=== PATIENT | female | born 1955 | race Caucasian/White ===

== ENCOUNTER 2020-09-28 11:33 | Emergency (ER) | payer MEDICARE, SELFPAY ==
[2020-09-28 11:46] VITALS: BP 179/80; PULSE 98; RESP 20; TEMP 37.2; O2SAT 98
[2020-09-28 11:54] VITALS: BP 179/80; PULSE 98; RESP 20; TEMP 37.2; O2SAT 98
--- NOTE | 2020-09-28 11:57 | ED.URI ---
HPI - URI/Sore Throat General Chief Complaint: Upper Respiratory Infection Stated Complaint: Coughing History of Present Illness HPI Narrative: patient presents with nasal congestion and cough non productive cough. patient declines covid testing. no shortness of breath and no chest pain. patient took one dose of Sudafed with minimal relief. MD elicited complaint: nasal congestion Related Data Home Medications Medication Instructions Recorded Confirmed cyclobenzaprine 10 mg PO HS PRN 09/28/20 09/28/20 pantoprazole 40 mg PO BID 09/28/20 09/28/20 solifenacin 10 mg PO BID 09/28/20 09/28/20 Allergies Allergy/AdvReac Type Severity Reaction Status Date / Time aspirin [From Percodan] Allergy Unknown Verified 09/28/20 11:54 oxycodone [From Percodan] Allergy Unknown Verified 09/28/20 11:54 thiurizol Allergy Unknown Uncoded 09/28/20 11:54 Review of Systems Review of Systems: Narrative: CONSTITUTIONAL: Denies chills, or sweats. Reports fever and generalized body aches EYES: Denies visual changes, redness, or discharge. ENT: Denies otalgia. Reports nasal congestion runny nose and sore throat CARDIOVASCULAR: Denies chest pain, palpitations, or edema. RESPIRATORY: Denies dyspnea. Reports occasional cough GASTROINTESTINAL: Denies abdominal pain, nausea, vomiting, or diarrhea. GENITOURINARY: Denies dysuria or hematuria. SKIN: Denies rash or itching. MUSCULOSKELETAL: Denies back pain, joint pain, or myalgia. Reports generalized body aches NEUROLOGIC: Denies headache, numbness, or weakness. PSYCHIATRIC: Denies anxiety or depression. PMFSH Social History Social History Gender identity (if verbalized by the patient): Female Comments At time of signature, agree with nursing past medical, surgical, social and family history. There is no relevant family history pertinent to the presenting complaint Exam Narrative: Exam Narrative: The patient is a well-developed, well-nourished in no acute distress. SKIN: Skin is warm and dry without erythema, swelling or exudate. There is good turgor. No tenting. HEAD: Atraumatic. Normocephalic. No temporal or scalp tenderness. EYES: Moist and bright. Sclera and conjunctivae normal. No discharge. PERRLA. Extraocular motions intact. Gross visual acuity intact. EARS: Pinna is normal shape and contour. Clear external auditory canals. TM pearly najera with good cone of light, no erythema or suppuration. Bilateral cerumen noted no gross hearing deficit. NOSE: pink, moist mucosa with good air movement. Clear rhinorrhea without nasal flaring. Septum midline. Mouth: moist mucous membranes. THROAT; mild erythema noted to posterior oropharynx with moderate postnasal drainage. Without exudate or ulceration.. Uvula midline. Normal movement of soft palate. NECK: Supple and nontender with full range of motion without discomfort. No meningeal signs. LUNGS: Equal and bilateral breath sounds without wheezes, rales or rhonchi. CHEST: The chest wall is without retractions or use of accessory muscles. HEART: Has a regular rate and rhythm without murmur, gallops, click or rub. ABDOMEN: Soft, nontender with positive active bowel sounds. No rebound tenderness. EXTREMITIES: Without cyanosis, clubbing or edema. Equal 2+ distal pulses and 2 second capillary refill noted. NEUROLOGIC: alert, active, . The patient moves all extremities with normal muscle strength. Normal muscle tone is noted. Normal coordination is noted. NO focal neurological findings noted. Course Vital Signs Vital signs: Vital Signs Temperature 37.2 C 09/28/20 11:46 Pulse Rate 98 09/28/20 11:46 Respiratory Rate 09/28/20 11:46 Blood Pressure 179/80 H 09/28/20 11:46 Pulse Oximetry 98 09/28/20 11:46 Temperature 37.2 C 09/28/20 11:54 Pulse Rate 98 09/28/20 11:54 Respiratory Rate 20 09/28/20 11:54 Blood Pressure 179/80 H 09/28/20 11:54 Pulse Oximetry 98 09/28/20 11:54 Please EJ schedule a followup visit with your p
== END 2020-09-28 12:09 | disposition home or self-care (01) ==
PROVIDERS: Emergency Provider Nurse Practitioner Family
DX: R09.82 Postnasal drip (principal); K21.9 Gastro-esophageal reflux disease without esophagitis
CPT/HCPCS: 99213; G0463

== ENCOUNTER 2021-09-11 13:22 | Emergency (ER) | payer MEDICARE, SELFPAY ==
[2021-09-11 13:28] VITALS: BP 138/63; PULSE 80; RESP 16; TEMP 36.9; O2SAT 97
--- NOTE | 2021-09-11 13:37 | ED.URI ---
HPI - URI/Sore Throat General Chief Complaint: Upper Respiratory Infection Stated Complaint: sore throat cough head congestion Time Seen by Provider: 09/11/21 14:02 Source: patient and RN notes reviewed Mode of arrival: ambulatory Limitations: no limitations History of Present Illness HPI Narrative: 66-year-old female presents with concern for cough, ear fullness, headache, scratchy throat, raspy voice. Reports symptoms started on Friday. She denies fever, body aches, chills, sweats. She reports she is taken Benadryl. MD elicited complaint: cough Related Data Home Medications Medication Instructions Recorded Confirmed cyclobenzaprine 10 mg tablet 10 mg PO HS PRN Muscle Pain 09/28/20 09/11/21 pantoprazole 40 mg tablet,delayed 40 mg PO BID 09/28/20 09/11/21 release solifenacin 10 mg tablet 10 mg PO BID 09/28/20 09/11/21 Allergies Allergy/AdvReac Type Severity Reaction Status Date / Time aspirin [From Percodan] Allergy Unknown Verified 09/11/21 13:36 oxycodone [From Percodan] Allergy Unknown Verified 09/11/21 13:36 thiurizol Allergy Unknown Uncoded 09/11/21 13:36 Review of Systems Review of Systems: CONSTITUTIONAL: Reports malaise. Denies chills, sweats, or fever. EYES: Denies visual changes, redness, or discharge. ENT: Reports rhinorrhea, congestion, ear fullness and sore throat. CARDIOVASCULAR: Denies chest pain, palpitations, or edema. RESPIRATORY: Reports cough. Denies dyspnea. GASTROINTESTINAL: Denies abdominal pain, nausea, vomiting, diarrhea SKIN: Denies rash or itching. MUSCULOSKELETAL: Denies myalgia. NEUROLOGIC: Reports headache. All systems reviewed & are unremarkable except as noted in HPI and below PMFSH Social History Social History Gender identity (if verbalized by the patient): Female Comments At time of signature, agree with nursing past medical, surgical, social and family history. There is no relevant family history pertinent to the presenting complaint Exam Narrative: GENERAL: Well-appearing, well-nourished, and in no acute distress. HEAD: Normocephalic EYES: PERRLA, conjunctivae clear ENT: Nares clear, clear discharge. Mucous membranes moist. TM pearly gardiner with dull light reflex bilaterally; no tragal tenderness. Oropharynx not erythematous without lesions. Tonsils not enlarged and without exudate, no drooling, no hoarseness, no trismus, uvula midline. NECK: Supple. No lymphadenopathy CHEST: Clear to auscultation, breath sounds equal. No wheezing, rhonchi, rales, or stridor. No respiratory distress, speaks in full sentences. HEART: Regular rate and rhythm. No murmur heard. SKIN: Warm, dry, no rash. NEURO: Alert and oriented x3. PSYCH: Normal mood and affect Course Course Emergency Course: Discussed negative influenza test, offered COVID test, patient declined. Patient is aware of diagnosis, understands and agrees to treatment plan. Anticipatory guidance given. Patient agrees to follow-up as directed and is aware of reasons to seek care at the emergency department. Portions of this record may have been created with voice recognition software Level of Care: Express Care Visit Vital Signs Vital signs: Vital Signs Temperature 98.4 F 09/11/21 13:28 Pulse Rate 80 09/11/21 13:28 Respiratory Rate 16 09/11/21 13:28 Blood Pressure 138/63 09/11/21 13:28 Pulse Oximetry 97 09/11/21 13:28 Oxygen Delivery Room Air 09/11/21 13:28 Temperature 98.4 F 09/11/21 13:28 Pulse Rate 80 09/11/21 13:28 Respiratory Rate 16 09/11/21 13:28 Blood Pressure 138/63 09/11/21 13:28 Pulse Oximetry 97 09/11/21 13:28 Oxygen Delivery Room Air 09/11/21 13:28 Reviewed. MDM - URI/Sore Throat MDM Narrative Medical decision making narrative: Differential diagnosis considered: Parrish virus, strep pharyngitis, allergic rhinitis, upper respiratory tract infection, sinusitis, rhinosinusitis, nasopharyngitis. viral pharyngitis, otitis media, otitis externa, pneumonia, bro
== END 2021-09-11 14:07 | disposition home or self-care (01) ==
PROVIDERS: Emergency Provider Nurse Practitioner
DX: J06.9 Acute upper respiratory infection, unspecified (principal); K21.9 Gastro-esophageal reflux disease without esophagitis
CPT/HCPCS: 87804; 99213; G0463

== ENCOUNTER 2022-07-20 13:49 | Emergency (ER) | payer MEDICARE, SELFPAY ==
--- NOTE | ~2022-07-20 | XR_ITS ---
EXAMINATION: XR knee LT min 4V DATE: 07/20/2022 14:12 INDICATION: Left knee pain, initial encounter TECHNIQUE: Four views of the left knee were obtained. COMPARISON: None. FINDINGS: There is an acute, traumatic fracture of the lateral tibial plateau. There is mild depressi on of the lateral fracture fragment. There is a small knee joint effusion. Mild tricompartmental oste oarthritis is noted. Soft tissues are unremarkable. IMPRESSION: 1. Minimally depressed fracture of the lateral tibial plateau. Reviewed, dictated and finalized at location A.
[2022-07-20 13:58] VITALS: BP 153/72; PULSE 92; RESP 16; TEMP 36.9; O2SAT 100
--- NOTE | 2022-07-20 14:19 | ED.LOWEXIN ---
HPI - Extremity Injury (Lower) General Chief Complaint: Extremity Injury, Lower Stated Complaint: Left Knee/Leg Injury Time Seen by Provider: 07/20/22 14:19 History of Present Illness HPI Narrative: PATIENT PRESENTS IWTH RIGHT KNEE PAIN NO DEFORMITY NO BRUISING NOTED SLIGHT SWELLING TO RIGHT KNEE. PATIENT REPORTS SHE TWISTED IT EARLIER TODAY AND NOW IT HURTS TO WALK ON HER KNEE. Related Data Home Medications Medication Instructions Recorded Confirmed cyclobenzaprine 10 mg tablet 10 mg PO HS PRN Muscle Pain 09/28/20 07/20/22 pantoprazole 40 mg tablet,delayed 40 mg PO BID 09/28/20 07/20/22 release solifenacin 10 mg tablet 10 mg PO BID 09/28/20 07/20/22 Allergies Allergy/AdvReac Type Severity Reaction Status Date / Time aspirin [From Percodan] Allergy Unknown Verified 07/20/22 14:16 oxycodone [From Percodan] Allergy Unknown Verified 07/20/22 14:16 thiurizol Allergy Unknown Uncoded 07/20/22 14:16 Review of Systems Review of Systems: CONSTITUTIONAL: DENIES FEVER, CHILLS, OR SWEATS. EYES: DENIES VISUAL CHANGES, REDNESS, OR DISCHARGE. ENT: DENIES RHINORRHEA, CONGESTION, SORE THROAT, OR OTALGIA. CARDIOVASCULAR: DENIES CHEST PAIN, PALPITATIONS, OR EDEMA. RESPIRATORY: DENIES COUGH OR DYSPNEA. GASTROINTESTINAL: DENIES ABDOMINAL PAIN, NAUSEA, VOMITING, OR DIARRHEA. GENITOURINARY: DENIES DYSURIA OR HEMATURIA. SKIN: DENIES RASH OR ITCHING. MUSCULOSKELETAL: DENIES BACK PAIN, JOINT PAIN, OR MYALGIA. NEUROLOGIC: DENIES HEADACHE, NUMBNESS, OR WEAKNESS. PSYCHIATRIC: DENIES ANXIETY OR DEPRESSION. PMFSH Social History Social History Gender identity (if verbalized by the patient): Female Comments AT TIME OF SIGNATURE, AGREE WITH NURSING PAST MEDICAL, SURGICAL, SOCIAL AND FAMILY HISTORY. THERE IS NO RELEVANT FAMILY HISTORY PERTINENT TO THE PRESENTING COMPLAINT Exam Narrative: GENERAL: WELL-APPEARING, WELL-NOURISHED, AND IN NO ACUTE DISTRESS. HEAD: NORMOCEPHALIC, ATRAUMATIC. EYES: PERRLA AND EOMI. ENT: NARES CLEAR, NO RHINORRHEA OR EPISTAXIS. MUCOUS MEMBRANES MOIST. NECK: SUPPLE. CHEST: CLEAR TO AUSCULTATION. NO RESPIRATORY DISTRESS. HEART: REGULAR RATE AND RHYTHM. NO MURMUR HEARD. NORMAL PERIPHERAL PULSES. ABDOMEN: SOFT, NONTENDER, NONDISTENDED, NORMAL ACTIVE BOWEL SOUNDS. EXTREMITIES: NORMAL RANGE OF MOTION. NO EDEMA. SKIN INTACT. NO DEFORMITY. NORMAL ROM, HAS FULL EXTENSION AND FLEXION. COMPARTMENTS SOFT. NEGATIVE ANTERIOR, POSTERIOR DRAWER SIGNS ON TEST. NO CREPITUS. DP PULSE, NORMAL CAPILLARY REFILL MCMURRAYS, PAIN TO RIGHT MEDIAL AND DISTAL KNEE WITH KNEE FLEXION, INTERNAL AND EXTERNAL FOOT ROTATION.NO ERYTHEMA OR INCREASED WARMTH TO CALF. . SKIN: WARM, DRY, NO RASH. NEURO: NO FOCAL DEFICITS. ALERT AND ORIENTED X3. LETICIA COMA SCALE EYE OPENING: SPONTANEOUS 4 LETICIA COMA SCALE MOTOR: OBEYS COMMANDS 6 LETICIA COMA SCALE VERBAL: ORIENTED 5 LETICIA COMA SCALE TOTAL 15 Course Course Level of Care: Express Care Visit Vital Signs Vital signs: Vital Signs Temperature 36.9 C 07/20/22 13:58 Pulse Rate 92 07/20/22 13:58 Respiratory Rate 16 07/20/22 13:58 Blood Pressure 153/72 H 07/20/22 13:58 Pulse Oximetry 100 07/20/22 13:58 Oxygen Delivery Room Air 07/20/22 13:58 Temperature 36.9 C 07/20/22 13:58 Pulse Rate 92 07/20/22 13:58 Respiratory Rate 16 07/20/22 13:58 Blood Pressure 153/72 H 07/20/22 13:58 Pulse Oximetry 100 07/20/22 13:58 Oxygen Delivery Room Air 07/20/22 13:58 PLEASE EJ SCHEDULE A FOLLOWUP VISIT WITH YOUR PERSONAL PHYSICIAN FOR FURTHER EVALUATION AND TREATMENT. INCLUDING RECHECK AND DISCUSSION OF YOUR BLOOD PRESSURE. IF YOUR SYMPTOMS PERSIST, CHANGE OR WORSEN SIGNIFICANTLY BEFORE YOU CAN CONTACT YOUR PERSONAL PHYSICIAN THEN PLEASE, WITHOUT DELAY, GO TO THE EMERGENCY DEPARTMENT FOR FURTHER EVALUATION MDM - Extremity Injury (Lower) Differential Diagnosis Differential diagnosis: Likely ankle sprain and strain, acute internal derangement of knee, fracture of
== END 2022-07-20 14:30 | disposition home or self-care (01) ==
PROVIDERS: Emergency Provider Nurse Practitioner Family
DX: S82.142A Displaced bicondylar fracture of left tibia, initial encounter for closed fracture (principal); S80.02XA Contusion of left knee, initial encounter; X50.9XXA Other and unspecified overexertion or strenuous movements or postures, initial encounter; K21.9 Gastro-esophageal reflux disease without esophagitis; M19.90 Unspecified osteoarthritis, unspecified site
CPT/HCPCS: 73564; 99214; G0463; L1830

== ENCOUNTER 2024-11-01 12:58 | Emergency (ER) | payer MEDICARE, SELFPAY ==
--- NOTE | ~2024-11-01 | XR_ITS ---
HISTORY: fell onto ribs, struck against firm object COMPARISON: None TECHNIQUE: 3 views of the right ribs were performed along with a PA examination of the chest FINDINGS: The cardiomediastinal silhouette is unremarkable. Medial right basilar atelectasis is suspected. The remainder of the lungs are clear. No acute displaced fracture is appreciated. Bone mineralization is age-appropriate. IMPRESSION: Medial right basilar atelectasis is suspected. No acute displaced right-sided rib fracture. If clinical suspicion persists, cross-sectional imaging (noncontrast enhanced CT examination of the c hest) is suggested for further evaluation. Reviewed, dictated and finalized at location A. IMPRESSION: Medial right basilar atelectasis is suspected. No acute displaced right-sided rib fracture. If clinical suspicion persists, cross-sectional imaging (noncontrast enhanced C T examination of the chest) is suggested for further evaluation.
--- OUTSIDE RECORDS SUMMARY | 2024-11-01 13:01 | XMS_ITS | Clinical Summary ---
Author Organization [facility] Address [address] [place] [address] Phone Care Team Providers Care Equipment Processer Storage Name Role Phone Miroslava Donnelly MD Primary Care Provider [phone] Allergies Active Allergy Reactions Criticality Noted Date Comments Other-Environmental Allergen (Not Found In Search) Anxiety,Hallucination s 02/18/2023 PERCODAN THERMOSOL (IN CONTACT LENS SOLUTION) CAUSED BURNING TO EYES Medications pantoprazole (PROTONIX) 40 MG Tablet Delayed Response Take 40 mg by mouth daily. Active solifenacin (VESICARE) 10 MG Tablet Take 10 mg by mouth daily. Active cyclobenzaprine (FLEXERIL) 10 MG Tablet Take 10 mg by mouth Daily as needed for Muscle spasms. Active Cholecalciferol (VITAMIN D-3 PO) Take by mouth. Active CALCIUM MAGNESIUM ZINC PO Take by mouth daily. Active TURMERIC PO Take by mouth daily. Active Family History Medical History Relation Name Comments Heart Attack Father Heart Disease Father Cancer Mother lung Other-comment Mother ULCER Relation Name Status Comments Father Alive Mother Social History Tobacco Use Types Packs/Day Years Used Date Smoking Tobacco: Never Smokeless Tobacco: Never Tobacco Cessation:Counseling Given: Not Answered Alcohol Use Standard Drinks/Week Comments Not Currently 0 (1 standard drink = 0.6 oz pur e alcohol) Comments Unknown Sex and Gender Information Value Date Recorded Sex Assigned at Not on file Legal Sex Female 10:05 AM CDT Gender Identity Not on file Sexual Orientation Not on file Last Filed Vital Signs Vital Sign Reading Time Taken Comments Blood Pressure 148/77 03/03/2023 11:44 AM BRANCH CHIEF Pulse 72 03/03/2023 11:44 AM BRANCH CHIEF Temperature 36.6 C (97.8 F) 03/03/2023 11:44 AM BRANCH CHIEF Respiratory Rate 16 03/03/2023 11:44 AM BRANCH CHIEF Oxygen Saturation 99% 03/03/2023 11:44 AM BRANCH CHIEF Inhaled Oxygen Concentration - - Weight 97.5 kg (215 lb) 04/21/2023 3:00 PM BRANCH CHIEF Height 162.6 cm (5' 4) 04/21/2023 3:00 PM BRANCH CHIEF Body Mass Index 36.9 04/21/2023 3:00 PM BRANCH CHIEF Plan of Treatment Health Maintenance Due Date Last Done Comments Hepatitis C Virus (HCV) Screening 1955 TdaP Immunization 1955 Cologuard 02/07/2000 Colonoscopy 02/07/2000 Colorectal Cancer Screening 02/07/2000 Immunochemical Fecal Occult Blood 02/07/2000 Zoster Immunization (1 of 2) 2005 SARS-COV-2 Immunization ( season) 2023 07/20/2020, 05/30/2020 Mammogram 02/13/2024 02/12/2023, 11/2022, 12/04/2021, Additional history exists DEXA Bone Density 07/05/2024 07/05/2022, 11/29/2020 Influenza Immunization (#1) 12/06/202402/05, 02/05/2022, 03/02/2021, Additional history exists Respiratory Syncytial Virus (RSV) Immunization (Adult) (1 - 1-dose 75+ series) 2030 Pneumococcal Immunization (50+ years) Completed 11/27/2021, 03/02/2021 Hepatitis B Immunization Aged Out No longer eligible based on patient's age to complete this topic Human Papillomavirus (HPV) Immunization Aged Out No longer eligible based on patient's age to complete this topic Meningococcal Immunization (ACWY) Aged Out No longer eligible based on patient's age to complete this topic Rotavirus Immunization Aged Out No lo nger eligible based on patient's age to complete this topic Medical Devices Implanted Type Area Back Pad Inspector Device Identifier Shelf Expiration Date Model / Serial / Lot Left Lens Implanted:Qty: 1 on 03/03/2023 by Oumar Wu MD at [facility] Left: Eye [employer] 11/26/2025 [id number] / [id number] / [id number] Insurance MEDICARE [facility] Care Teams Equipment Processer Storage Relationship Specialty Start [place] [id number] [address] PCP - General Internal Medicine 03/03/23
--- OUTSIDE RECORDS SUMMARY | 2024-11-01 13:01 | XMS_ITS | Clinical Summary ---
Author Organization [facility] Stylewhile Address [address] [facility] [place] [address] Care Team Providers Care Community Relations Director Name Role Phone BhavanaPhilly pepper DO Unavailable Mike Salmon MD Unavailable Miroslava Donnelly MD Primary Care Provider Sancho Brooks MD Unavailable Slim Costello MD Unavailable Loan Mendenhall MD Unavailable Arlin Subramanian DPM Unavailable Joan Green DO Unavailable [phone] Kenny Fong MD Unavailable [phone] Miroslava Donnelly MD Unavailable [phone] Source Comments [facility],non-owned Affiliates and Associated Physician Practices is amultiple site organization consisting of ambulatory clinics and hospital sitesin [place], [place], [place] and [place]. This disclosure is being madepursuant to the Care Everywhere program and may not contain all information available regarding this patient. Last updated 17.[facility] Allergies Active Allergy Reactions Criticality Noted Date Comments Oxycodone-Acetaminophen 03/16/2012 Dizzy and nausea Thimerosal Itching 05/30/2015 Medications * Be aware that medications may not be up to date on this document. Alwaysverify current medications with the patient. solifenacin (VESICARE) 10 MG tablet TAKE 1 TABLET BY MOUTH DAILY 30 tablet 11 0 Active Multiple Vitamin (MULTI VITAMIN DAILY PO) Active Other Take 1 Each by mouth once daily Bio clense and probio 5 (Probiotics) Active fluticasone propionate (Flonase) 50 MCG/ACT nasal spray USE 2 SPRAY(S) IN EACH NOSTRIL ONCE DAILY FOR 14 DAYS 1 Active CALCIUM CARB-MAGNESIUM CARB PO Active meclizine (Antivert) 25 MG tablet Take 1 (one) tablet by mouth 3 times daily as needed for Dizziness 30 tablet 1 3 Active cyclobenzaprine (Flexeril) 10 MG tabletIndication s:Acute low back pain, unspecified back pain laterality, unspecified whether sciatica present,Low back pain, unspecified back pain laterality, unspecified chronicity, unspecified whether sciatica present Take 1 (one) tablet by mouth nightly as needed for Muscle Spasms 30 tablet 5 5 Active pantoprazole EC (Protonix) 40 MG tabletIndication s:Gastroesophage al reflux disease without esophagitis Take 1 tablet by mouth once daily 90 tablet 5 Active Active Problems Problem Noted Date Diagnosed Date Left sided sciatica 12/04/2021 Screening for colon cancer 01/03/2021 OAB (overactive bladder) 11/23/2019 Gastroesophageal reflux disease without esophagi tis 01/26/2018 Abnormal mammogram 10/01/2016 Inversion, nipple 09/30/2016 Cavernous hemangioma of liver 01/06/2016 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 Abdirashid Carroll 01/26/2018 05/30/2022 Cholelithiasis with chronic cholecystitis 03/05/2016 12/24/2019 Calculus of gallbladder with out cholecystitis without obstruction 02/09/2016 11/24/2020 History of arthroscopy of right knee 07/22/2011 11/11/2014 Tear of medial cartilage or meniscus of knee, current 03/28/2011 11/11/2014 Encounters Date Type Department Care Team Description 09/28/2024 Refill [facility] Family Medicine [address] [place] [address] Miroslava Donnelly MD Refill Request 08/27/2024 Patient Outreach [facility] - Care Coordination [address] [place] [address] Veronica Ridley Outreach Preventive Care from Last 3 Months Immunizations Immunization Administration Dates Next Due Covid Moderna primary monovalent 12+ yr 0.5mL ,05/30/2020 INFLUENZA VACCINE 02/05/2022 INFLUENZA VACCINE, ADJUVANTE D, TRIV. (FLUAD TRIVALENT; 65Y+) (AIIV3) 02/25/2024 INFLUENZA VACCINE, HIGH-DOSE , QUADR. (FLUZONE HIGH-DOSE QUADRIVALENT; 65Y+), 0.7 ML (HD-IIV4) 02/19/2022,03/02/2021 INFLUENZA VACCINE, QUADR. (F LUZONE; FLULAVAL; FLUARIX; AFLURIA QUADRIVALENT; 6MO+), 0.5 ML (IIV4) 12/24/2019 PNEUMOCOCCAL PCV20 CONJ VAC IM 11/27/2021 PNEUMOCOCCAL PCV21 07/21/2024 Pneumococcal Pcv13 Conj 03/02/2021 TDAP, HISTORIC VACCINE 07/21/2024 Zoster Hzv Vacc Recombinant Inj Im 07/21/2024, Family History Medical History Relation Name Comments Hypertension Brother CAD (Coronary Artery Disease) Father Heart Disease Father Hypertension Father RI<55(male) Father Hypertension Maternal Grandfather Lung Cancer Mother Stomach ulcers Mother stomach remov ed-had ostomy Cancer - Colon Paternal Grandfather Relation Name Status Comments Brother Alive x1 Father Alive Maternal Grandfather Mother Paternal Grandfather Social History Tobacco Use Types Packs/Day Years Used Date Smoking Tobacco: Never Smokeless Tobacco: Never Tobacco Cessation:Counseling Given: Yes Alcohol Use Standard Drinks/Week Comments No 0 (1 standard drink = 0.6 oz pur e alcohol) PHQ-2 Answer Date Recorded Patient Health Questionnaire-2 Score 0 07/13/2024 Comments No Sex and Gender Information Value Date Recorded Sex Assigned at Female 10/29/2023 7:39 PM CDT Legal Sex Female 12:48 PM SPANISH LECTURER Gender Identity Female 10/29/2023 7:39 PM CDT Sexual Orientation Straight 10/29/2023 7 :39 PM CDT 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 [employer] Not on file Not on file Not on file Last Filed Vital Signs Vital Sign Reading Time Taken Comments Blood Pressure 136/90 07/13/2024 3:15 PM CDT Pulse 86 07/13/2024 3:15 PM CDT Temperature 36.2 C (97.2 F) 07/13/2024 3:15 PM CDT Respiratory Rate 18 07/13/2024 3:15 PM CDT Oxygen Saturation 95% 07/13/2024 3:15 PM CDT Inhaled Oxygen Concentration - - Weight 102.1 kg (225 lb) 07/13/2024 3:15 PM CDT Height 162.6 cm (5' 4.02) 07/13/2024 3:15 PM CD T Body Mass Index 38.6 07/13/2024 3:15 PM CDT Plan of Treatment Upcoming Encounters Date Type Department Care Team (Late st Contact Info) Description 01/21/2025 1:15 PM CDT Office Visit [facility] Medical [facility] - Family Medicine [address] [place] [address] [place] [address] [facility] [place], [place] [id number] 03/04/2025 12:30 PM SPANISH LECTURER Testing Visit [facility] - ENT [address], [address] [place] [address] Guerline Nicolas, [place] [address] [facility] [address] [place] [address] 03/04/2025 1:00 PM SPANISH LECTURER Office Visit [facility] - ENT [address], [address] [place] [address] Ethan Portillo MD [address] [place] [address] 05/27/2025 2:00 PM SPANISH LECTURER Office Visit [facility] - MACHINE EDGE BANDER [address] [place] [address] Sample, [place] [address] [address] [facility] [address] [place] [address] Health Maintenance Due Date Last Done Comments COLOGUARD (AGES 45-75) - COLON CA SCREENING 1955 CT COLONOGRAPHY - COLON CA SCREENING 1955 FIT - COLON CA SCREENING 1955 FLEX SIG - COLON CA SCREENING 1955 INFLUENZA VACCINE (#1) 2024 4, 02/19/2022, 02/05/2022, Additional history exists MEDICARE AWV 12 MONTHS 12/10/2024 12/11/2023, 12/06/2022, 11/27/2021, Additional history exists COVID-19 VACCINE ( season) 2024 07/20/2020, 05/30/2020 Postponed from 12/07/2023 (Patient Refused) MAMMOGRAM 02/12/2025 02/12/2023, 11/2022, 12/04/2021, Additional history exists COLON MONITORING 03/09/2026 03/09/2024, 06/2023, 01/02/2022, Additional history exists Colorectal Cancer Screening 03/09/2026 SCREENING FOR DIABETES 12/17/2026 , 12/18/2023, 11/19/2022, Additional history exists LIPID TESTING 12/17/2028 12/18/2023, 11/05, 11/24/2020, Additional history exists Respiratory Syncytial Virus (RSV) Vaccine Pt: or over 60 yrs (1 - 1-dose 75+ series) 2030 COLONOSCOPY - COLON CA SCREENING 03/09/2034 03/09/2024, 03/09/2024, 01/02/2022, Additional history exists DTAP/TDAP/TD VACCINES (2 - Td or Tdap) 07/21/2034 07/21/2024 BONE DENSITY TESTING Completed 07/05/2022, 11/30/19 21 DEPRESSION SCREENING Completed 05/26/2024, 12/11/2023, 05/30/2022, Additional history exists PNEUMOCOCCAL VACCINE 50+ Completed 025, 11/27/2021, 03/02/2021 ZOSTER VACCINE Completed 07/21/2024, 05/11/2024 HEPATITIS B VACCINE Aged Out No longe r eligible based on patient's age to complete this topic HEPATITIS C SCREENING Discontinued HIB VACCINE Aged Out No longer eligi ble based on patient's age to complete this topic HPV VACCINE Aged Out No longer eligi ble based on patient's age to complete this topic MENINGOCOCCAL (Group B) VACCINE SHARED DECISION-MAKING Aged Out No longer eligible based on patient's age to complete this topic MENINGOCOCCAL GROUPS A/C/Y/W VACCINE Aged Out No longer eligible based on patient's age to complete this topic Medical Devices Implanted Type Area Door Repairer Bus Device Identifier Shelf Expiration Date Model / Serial / Lot Screw 2.5mm 18mm P/T Comp Jagruti Slf-Tap Implanted:Qty: 1 on 02/02/2019 by Arlin Subramanian DPM at [facility] Left: Foot [employer] [id number] / / Screw 2mm 12mm P/T Comp Jagruti Slf-Tap Implanted:Qty: 1 on 02/02/2019 by Arlin Subramanian DPM at [facility] Left: Foot [employer] [id number] / / Headed Screw Implanted:Qty: 1 on 03/02/2019 by Arlin Subramanian DPM at [facility] Right: Foot [employer] [id number] / / Headed Screw Implanted:Qty: 1 on 03/02/2019 by Arlin Subramanian DPM at [facility] Right: [employer] [id number] / / Description:left 2nd MPJ Explanted Type Area Door Repairer Bus Device Identifier Shelf Expiration Date Model / Serial / Lot Wire K 1.4mm 150mm Troc Blnt Fx Explanted:Qty: 2 on 02/02/2019 at [facility] Left: Foot [employer] [id number] / / Wire K .9mm 150mm Troc Blnt Fx Explanted:Qty: 2 on 03/02/2019 at [facility] Right: [employer] [id number] / / Procedures Procedure Name Priority Date/Time Associated Diagnosis Comments ENDOSCOPY, COLON, SCREENING Routine 03/09/2024 12:10 PM SPANISH LECTURER History of adenomatous polyp of colon Family history of colon cancer COMPREHENSIVE METABOLIC PANEL Routine 12/18/2023 10:38 AM CDT Pure hypercholesterolemi a Vitamin D insufficiency BMI 38.0-38.9,adult LIPID PROFILE W TCHOL/HDL Routine 12/18/2023 10:38 AM CDT Pure hypercholesterolemi a Elevated cholesterol BMI 38.0-38.9,adult MAMMO BILAT SCREENING W OLEKSANDR Routine 02/12/2023 2:58 PM SPANISH LECTURER Encounter for screening mammogram for malignant neoplasm of breast DEXA BONE DENSITY AXIAL SKELETON Routine 07/05/2022 1:54 PM CDT Menopause from Last 3 Months or Most Recently Relevant to Health Maintenance Results * Endoscopy, Colon, Screening (03/09/2024 12:10 PM SPANISH LECTURER) Report Endoscopy POC _ Patient Name: Philly Nicolas Procedure Date: 03/09/2024 12:10 PM Date of : 1955 Admit Type: Outpatient Age: 69 Gender: Female Attending MD: Terence Yung MD, [id number] _ Procedure: Colonoscopy Indications: High risk colon cancer surveillance: Personal history of colonic polyps, Last colonoscopy: 2021 Providers: Terence Yung MD (Doctor) Referring MD: Miroslava Donnelly MD (Referring MD) Medicines: Monitored Anesthesia Care Complications: No immediate complications. _ Estimated Blood Loss: Estimated blood loss: none. Procedure: Pre-Anesthesia Assessment: - Prior to the procedure, a History and Physical was performed, and patient medications and allergies were reviewed. The patient is competent. The risks and benefits of the procedure and the sedation options and risks were discussed with the patient. All questions were answered and informed consent was obtained. Patient identification and proposed procedure were verified by the physician, the nurse and the spool winder in the procedure room. Mental Status Examination: alert and oriented. Airway Examination: normal oropharyngeal airway and neck mobility. Respiratory Examination: clear to auscultation. CV Examination: normal. Prophylactic Antibiotics: The patient does not require prophylactic antibiotics. Prior Anticoagulants: The patient has taken no anticoagulant or antiplatelet agents. ASA Grade Assessment: III - A patient with severe systemic disease. After reviewing the risks and benefits, the patient was deemed in satisfactory condition to undergo the procedure. The anesthesia plan was to use monitored anesthesia care (MAC). Immediately prior to administration of medications, the patient was re-assessed for adequacy to receive sedatives. The heart rate, respiratory rate, oxygen saturations, blood pressure, adequacy of pulmonary ventilation, and response to care were monitored throughout the procedure. The physical status of the patient was re-assessed after the procedure. After I obtained informed consent, the scope was passed under direct vision. Throughout the procedure, the patient's blood pressure, pulse, and oxygen saturations were monitored continuously. The Colonoscope was introduced through the anus and advanced to the ileocolonic anastomosis. The colonoscopy was performed without difficulty. The patient tolerated the procedure well. The quality of the bowel preparation was good. Anatomical landmarks were photographed. Findings: The digital rectal exam was normal. Pertinent negatives include no palpable rectal lesions. There was evidence of a prior end-to-side ileo-colonic anastomosis in the transverse colon. This was patent and was characterized by healthy appearing mucosa. The anastomosis was not traversed. The rectum, sigmoid colon and descending colon appeared normal. _ Impression: - Patent end-to-side ileo-colonic anastomosis, characterized by healthy appearing mucosa. - The rectum, sigmoid colon and descending colon are normal. The tattoo was noted in the distal rectum from a prior procedure. - No specimens collected. Recommendation: - Repeat colonoscopy in 5 years for surveillance. - Return to primary care physician as previously scheduled. - Resume previous diet. - Continue present medications. - Patient has a contact number available for emergencies. The signs and symptoms of potential delayed complications were discussed with the patient. Return to normal activities tomorrow. Written discharge instructions were provided to the patient. Procedure Code(s): --- Professional --- 41912, Colonoscopy, flexible; diagnostic, including collection of specimen(s) by brushing or washing, when performed (separate procedure) --- Technical --- 17085, Colonoscopy, flexible; diagnostic, including collection of specimen(s) by brushing or washing, when performed (separate procedure) Diagnosis Code(s): --- Professional --- Z86.010, Personal history of colonic polyps Z98.0, Intestinal bypass and anastomosis status --- Technical --- Z86.010, Personal history of colonic polyps Z98.0, Intestinal bypass and anastomosis status CPT copyright 2020 [employer]. All rights reserved. The codes documented in this report are preliminary and upon cheese production supervisor review may be revised to meet current compliance requirements. Dr. Terence Yung MD Terence Yung MD 03/09/2024 1:46:17 PM This report has been signed electronically. Number of Addenda: 0 Note Initiated On: 03/09/2024 12:10 PM [facility] ENDOSCOPY 03/09/2024 12:1 0 PM SPANISH LECTURER Terence Yung MD GI PROCEDURE ORDERABLES Omar mark Result - Final [facility] [place] [address] * (ABNORMAL) LIPID PROFILE W TCHOL/HDL (12/18/2023 10:38 AM CDT) Cholesterol 242(H) 100 - 199 mg/dL [facility] INSURANCE BILL Triglycerides 142 0 - 149 mg/dL [facility] INSURANCE BILL HDL Cholesterol 72 >39 mg/dL [facility] INSURANCE BILL VLDL Calculated 25 5 - 40 mg/dL [facility] INSURANCE BILL LDL Calculated 145(H) 0 - 99 mg/dL [facility] INSURANCE BILL Cholesterol/HDL Ratio 3.4 0.0 - 4.4 ratio [facility] INSURANCE BILL Comment: T. Chol/HDL Ratio Men Women 1/2 Avg.Risk 3.4 3.3 Avg.Risk 5.0 4.4 2X Avg.Risk 9.6 7.1 3X Avg.Risk 23.4 11.0 Blood BLOOD SPECIMEN / Unknown 12/18/2023 10:38 AM CDT 12/18/2023 Narrative [facility] INSURANCE BILL - 12/19/2023 6:07 AM CDT Performed at: 01 - [facility] [address] [id number] Storage Facility Housekeeper: Bob Troy PhD, Phone: [phone] Miroslava Donnelly MD LAB - CHEMISTRY ORDERABLES Fin al Result [facility] INSURANCE BILL [address] [place] [address] * (ABNORMAL) COMPREHENSIVE METABOLIC PANEL (12/18/2023 10:38 AM CDT) [facility] Glucose 89 70 - 99 mg/dL [facility] INSURANCE BILL BUN 16 8 - 27 mg/dL [facility] INSURANCE BILL Creatinine 1.01(H) 0.57 - 1.00 mg/dL [facility] INSURANCE BILL eGFR by CKD-EPI 61 >59 mL/min/1.7 3 [facility] INSURANCE BILL BUN/Creatinine Ratio 16 12 - 28 [facility] INSURANCE BILL Sodium 141 134 - 144 mmol/L [facility] INSURANCE BILL Potassium 5.2 3.5 - 5.2 mmol/L [facility] INSURANCE BILL Chloride 102 96 - 106 mmol/L [facility] INSURANCE BILL CO2 26 20 - 29 mmol/L [facility] INSURANCE BILL Calcium 9.8 8.7 - 10.3 mg/dL [facility] INSURANCE BILL Protein Total 7.0 6.0 - 8.5 g/dL [facility] INSURANCE BILL Albumin 4.2 3.9 - 4.9 g/dL [facility] INSURANCE BILL Globulin Total 2.8 1.5 - 4.5 g/dL [facility] INSURANCE BILL Bilirubin Total 0.6 0.0 - 1.2 mg/dL [facility] INSURANCE BILL Alkaline Phosphatase 69 44 - 121 IU/L [facility] INSURANCE BILL AST 26 0 - 40 IU/L [facility] INSURANCE BILL ALT 43(H) 0 - 32 IU/L [facility] INSURANCE BILL Blood BLOOD SPECIMEN / Unknown 12/18/2023 10:38 AM CDT 12/18/2023 Narrative [facility] INSURANCE BILL - 12/19/2023 6:07 AM CDT Performed at: 01 - [address] [id number] Storage Facility Housekeeper: Bob Troy PhD, Phone: [phone] Miroslava Donnelly MD LAB - CHEMISTRY ORDERABLES Fin al Result [facility] INSURANCE BILL [address] [place] [address] * MAMMO BILAT SCREENING W OLEKSANDR (02/12/2023 2:58 PM SPANISH LECTURER) Anatomical Region Laterality Modality Breast Bilateral Mammography 02/12/2023 4:22 PM SPANISH LECTURER Impressions 02/12/2023 4:26 PM SPANISH LECTURER : Annual screening mammography is recommended. OVERALL FINAL ASSESSMENT: BI-RADS Category 1: Negative. > Interpreting Provider: Víctor Rosa MD on 02/12/2023 4:26 PM Narrative 02/12/2023 4:26 PM SPANISH LECTURER EXAMINATION: BILATERAL DIGITAL SCREENING MAMMOGRAM AND BILATERAL BREAST TOMOSYNTHESIS HISTORY: Screening. COMPARISON: Serial examinations dating back to January 12, 2019. TECHNIQUE: BILATERAL digital breast tomosynthesis (DBT) and synthetic 2D digital mammogram images were obtained (bilateral craniocaudal and mediolateral oblique projections) including computer aided detection (CAD.) BREAST PARENCHYMAL COMPOSITION:Category B: There are scattered areas of fibroglandular density. MAMMOGRAM FINDINGS: There is no suspicious finding in either breast. Sancho Brooks MD MAMMO ORDERABLES Final Result * DEXA BONE DENSITY AXIAL SKELETON (07/05/2022 1:54 PM CDT) Anatomical Region Laterality Modality Mammography 07/05/2022 2:04 PM CDT Narrative 07/05/2022 2:11 PM CDT BONE MINERAL DENSITY STUDY INDICATION: Ovarian failure. FINDINGS: The average bone mineral density from L1 to L4 is 1.195 g/cm2. T-score is 0.1 which is the standard deviations (SD) of the mean for the young adult. The Z-score is 0.8 which is the standard deviations for the mean for age matched control. Since 11/29/2020, decreased 1.8% bone mineral density. The average bone mineral density of the total left neck of the hip is 0.818 g/cm2. T-score is -1.6. Z-score is -0.6. Since 11/29/2020, decreased 1.2% bone mineral density. ASSESSMENT: The above findings represent no significant increased risk of fracture through the spine and mild increased risk of fracture through femur. WORLD HEALTH ORGANIZATION DEFINITIONS OSTEOPENIA = -1 TO -2.5 SD BELOW T-SCORE OSTEOPOROSIS = LESS THAN -2.5 SD BELOW T-SCORE 1. No significant- < 1 SD below T score 2. Mild - 1 -2.0 SD below T-score 3. Moderate - 2 -2.5 SD below T-score 4. Significant - > 2.5 SD below T-score Edited by Gardenia Nunes on 07/05/2022 2:09 PM > Interpreting Provider: Rell Kemp MD on 07/05/2022 2:11 PM Procedure Note Rell Kemp MD - 07/05/2022 BONE MINERAL DENSITY STUDY INDICATION: Ovarian failure. FINDINGS: The average bone mineral density from L1 to L4 is 1.195 g/cm2. T-scoreis 0.1 which is the standard deviations (SD) of the mean for the youngadult. The Z-score is 0.8 which is the standard deviations for the mean forage matched control. Since 11/29/2020, decreased 1.8% bone mineral density. The average bone mineral density of the total left neck of the hip is0.818 g/cm2. T-score is -1.6. Z-score is -0.6. Since 11/29/2020, decreased1.2% bone mineral density. ASSESSMENT: The above findings represent no significant increased risk of fracture through the spine and mild increased risk of fracture through femur. WORLD HEALTH ORGANIZATION DEFINITIONS OSTEOPENIA = -1 TO -2.5 SD BELOW T-SCORE OSTEOPOROSIS = LESS THAN -2.5 SD BELOW T-SCORE 1. No significant- < 1 SD below T score 2. Mild - 1 -2.0 SD below T-score 3. Moderate - 2 -2.5 SD below T-score 4. Significant - > 2.5 SD below T-score Edited by Gardenia Nunes on 07/05/2022 2:09 PM > Interpreting Provider: Rell Kemp MD on 07/05/2022 2:11 PM Miroslava Donnelly MD DEXA ORDERABLES Final Result from Last 3 Months or Most Recently Relevant to Health Maintenance Insurance MEDICARE AET Advance Directives * Full Code (Latest Code Status on File) Date Activated Date Inactivated Comments 11/14/2015 2:23 PM 11/17/2015 4:41 PM Care Teams Community Relations Director Relationship Specialty Start [place] [id number] [place] [address] PCP - General Internal Medicine 11/23/19 [place] [id number] [place] [address] PCP - Attributed-MSSP 07/07/23 Philly Bateman DO Orthopedic Surgery 11/02/[address] [place] [address] [facility] [address] [place] [address] Dry Box Tender Gastroenterology 03/07/17 [place] [id number] [facility] [facility] [address] [place] [address] Obstetrics and Gynecology 11/23/19 [place] [address] [facility] [address] [place] [address] Urology 11/23/19 Loan Mendenhall MD [address] [facility] [address] [place], [place] [id number] Dermatology 11/23/19 Arlin Subramanian DPM [address] [place] [address] Podiatry 11/23/19 Joan Green DO [address] [facility] [address] [place] [id number] Physician Surgery 11/23/19 [place] [address] [facility] [address] [place] [address] Orthopedic Surgery 05/31/20
--- OUTSIDE RECORDS SUMMARY | 2024-11-01 13:01 | XMS_ITS | Encounter Summary ---
Author Organization [facility] Health Address [address] [place] [address] Care Team Providers Care Pressing Machine Operator Name Role Phone Daniel Bateman DO Unavailable Lavon Bell MD Primary Care Provider Mike Salmon MD Unavailable Unknown, Provider Primary Care Provider Unavaila ble Miroslava Donnelly MD Primary Care Provider [phone] Sancho Brooks MD Unavailable [phone] Slim Costello MD Unavailable Loan Mendenhall MD Unavailable [phone] Arlin Subramanian DPM Unavailable [phone] Joan Green DO Unavailable Leela Cota MD Unavailable [phone] Kenny Fong MD Unavailable Miroslava Donnelly MD Unavailable [phone] Sonya Yoon Unavailable Veronica Ridley Unavailable [phone] Encounter Details Date Type Department Care Team (Late st Contact Info) Description 10/01/2016 [facility] Outpatient Visit [facility] [address] [place] [address] Joan Green, DO [address] [facility] [address] [place] [address] Social History Tobacco Use Types Packs/Day Years Used Date Smoking Tobacco: Never Smokeless Tobacco: Never Alcohol Use Standard Drinks/Week Comments No 0 (1 standard drink = 0.6 oz pur e alcohol) Comments No Sex and Gender Information Value Date Recorded Sex Assigned at Female 10/29/2023 7:39 PM CDT Legal Sex Female 12:48 PM ENVIRONMENTAL CONFLICT MANAGER Gender Identity Female 10/29/2023 7:39 PM CDT Sexual Orientation Straight 10/29/2023 7: 39 PM CDT documented as of this encounter Functional Status * Is person deaf or have serious hearing difficulty? Answer Date of Assessment Author No 08/29/2016 8:02 AM CDT Glory Tse RN * Is person blind or have serious difficulty seeing? Answer Date of Assessment Author No 08/29/2016 8:02 AM CDT Glory Tse RN * Does person have serious difficulty walking/climbing stairs? Answer Date of Assessment Author No 08/29/2016 8:02 AM CDT Glory Tse RN * Does person have difficulty dressing/bathing? Answer Date of Assessment Author No 08/29/2016 8:02 AM CDT Glory Tse RN * Does person have difficulty doing errands alone? Answer Date of Assessment Author No 08/29/2016 8:02 AM ZIONT Glory Tse RN documented as of this encounter Mental Status * Does person have difficulty concentrating/remembering/making decisions? Answer Entry Date Author No 08/29/2016 8:02 AM ZIONT Glory Tse RN documented in this encounter Plan of Treatment Upcoming Encounters Date Type Department Care Team (Late st Contact Info) Description 01/21/2025 1:15 PM CDT Office Visit [facility] - Family Medicine [id number] [facility] [address] [place] [address] [place] [id number] [facility] [address] [place], [place] [id number] 03/04/2025 12:30 PM ENVIRONMENTAL CONFLICT MANAGER Testing Visit [facility] - ENT [address], [facility] [address] [place] [address] Guerline Nicolas, [place] [address] [facility] [address] [place], [place] [id number] 03/04/2025 1:00 PM ENVIRONMENTAL CONFLICT MANAGER Office Visit [facility] - ENT [address], [address] [place] [address] Ethan Portillo MD [address] [place] [address] 05/27/2025 2:00 PM ENVIRONMENTAL CONFLICT MANAGER Office Visit [facility] - INSURANCE VERIFICATION CLERK [address] [place] [address] [place] [address] [facility] [address] [place] [address] documented as of this encounter Visit Diagnoses Not on filedocumented in this encounter Care Teams Pressing Machine Operator Relationship Specialty Start Date End Date Lavon Bell MD PCP - General Family Medicine 08/29/16 07/23/17 Unknown, Provider [address] [place] [address] PCP - General 03/23/19 11/22/19 [place] [address] [facility] [address] [place] [address] PCP - General Internal Medicine 11/23/19 [place] [address] [facility] [address] [place] [address] PCP - Attributed-MSSP 07/07/23 Daniel Bateman DO Orthopedic Surgery 11/02/14 [place] [address] [facility] [address] [place] [address] Test Automation Architect Gastroenterology 03/07/17 [place] [address] [facility] [address] [place] [address] Obstetrics and Gynecology 11/23/19 [place] [address] [facility] [address] [place] [address] Urology 11/23/19 Loan Mendenhall MD [address] [facility] [address] [place], [place] [id number] Dermatology 11/23/19 Arlin Subramanian DPM [address] [place] [address] Podiatry 11/23/19 Joan Green DO [address] [place] [address] Physician Surgery 11/23/19 Leela Cota MD [address] [facility] [address] [facility] [address] [place] [address] General Surgery 11/23/19 07/12/24 [place] [address] [facility] [address] [place] [id number] Orthopedic Surgery 05/31/20 Sonya Yoon 01/01/24 02/15/24 Veronica Ridley Care Coordination Specialist 08/27/24 08/27/24 documented as of this encounter
[2024-11-01 13:08] VITALS: BP 176/94; PULSE 77; RESP 20; TEMP 36.7; O2SAT 100
--- NOTE | 2024-11-01 13:19 | ED_ITS ---
HPI - Fall General Chief Complaint: Fall Stated Complaint: Fell on metal legs and hurt ribs History of Present Illness HPI Narrative: patient is a 69-year-old female past medical history significant for melena and GERD, presents to [facility] with right rib pain following an injury she sustained last evening when she tripped over object and landed on her dog's elated cot. She recalls striking her right chest wall against a metal bar. She has pain in the right ribs with movement and breathing. She denies hitting her head also, she has no neck or back pain. She has not attempted any modifying factors. She denies any additional injuries or complaints today. Related Data Home Medications ?Medication ?Instructions ?Recorded ?Confirmed ?Last Taken ?Type cyclobenzaprine 10 mg tablet 10 mg PO HS PRN Muscle Pain 09/28/20 09/26/22 Unknown History pantoprazole 40 mg tablet,delayed 40 mg PO BID 09/28/20 09/26/22 Unknown History release Allergies Allergy/AdvReac Type Severity Reaction Status Date / Time oxycodone (From Percodan) Allergy Unknown Verified 09/26/22 14:57 thiurizol Allergy Unknown Uncoded 09/26/22 14:57 Review of Systems Respiratory: Respiratory: Reports as per HPI Musculoskeletal: Musculoskeletal: Reports as per HPI PMFSH Past Medical History Medical History Melanoma Surgical History Surgical History History of bunionectomy (~2018) H/O left breast biopsy (~2016) History of liver biopsy (~2015) Hx of cholecystectomy (~2015) H/O colectomy (~2015) H/O arthroscopy of right knee (~2007) H/O tubal ligation (~1989) Family History Family History Unknown Heart disease Hypertension Arthritis Hyperlipidemia Neuropathy Social History Social History (Updated 09/26/22 @ 14:59 by Sarai Chavez MA) Smoking status: Never smoker Substance use type: does not use Gender identity (if verbalized by the patient): Female Exam Const: General: healthy appearing, no acute distress and alert Nutritional Appearance: well nourished Orientation/consciousness: patient oriented x3 Limitations: no limitations HENMT: Head: normal to inspection Ears: external ears normal Face/Nose/Sinus: Normal external nose present Face and sinus: normal facial exam Mouth: Yes Normal oral and palatal mucosa present Teeth and gingiva: dentition normal Eyes: Conjunctivae: conjunctivae normal Pupils: Equal, round and reactive pupils present EOM: EOMs intact bilaterally Neck: Neck: normal visual inspection, no lymphadenopathy and no meningeal signs Other: no C-spine point tenderness, step-offs no cervical paraspinal muscle tenderness to palpation, no palpable spasm Chest: Other: Patient is tender palpation the right anterior chest wall at the midclavicular line extending to the mid axillary line, ribs 4 through 7. No crepitus, no ecchymosis, no subcutaneous emphysema noted Resp: Effort & Inspection: normal respiratory effort Auscultation: clear to auscultation bilaterally Cardio: Rate: regular rate Rhythm: regular rhythm Back/Spine/Pelvis: Other: no T or L-spine point tenderness, no step-offs Skin: General skin exam: normal color Rashes: no rashes Neuro: General: patient oriented x3, moves all extremities, no meningeal signs, no focal motor deficits and CN's II-XI intact bilaterally Cranial nerves: Yes Nystagmus not present Speech: normal speech Gait exam (Neuro): Normal gait present Course Course Emergency Course: right rib plain films with PA chest Level of Care: Express Care Visit ([id number]) Vital Signs Vital signs: Vital Signs Temperature 36.7 C 11/01/24 13:08 Pulse Rate 77 11/01/24 13:08 Respiratory Rate 20 11/01/24 13:08 Blood Pressure 176/94 H 11/01/24 13:08 Pulse Oximetry 100 11/01/24 13:08 Oxygen Delivery Room Air 11/01/24 13:08 Temperature 36.7 C 11/01/24 13:08 Pulse Rate 77 11/01/24 13:08 Respiratory Rate 20 11/01/24 13:08 Blood Pressure 176/94 H 11/01/24 13:08 Pulse Oximetry 100 11/01/24 13:08 Oxygen Delivery Room Air 11/01/24 13:08 MDM - Fall MDM Narrative Medical decision making narrative: PLAIN FILMS ARE COMPLETE, RESULTS RECEIVED REVIEWED WITH PATIENT. MEDIAL RIGHT BASILAR ATELECTASIS IS SUSPECTED, NO ACUTE DISPLACED RIGHT-SIDED RIB FRACTURE NOTED. plan: Patient will be treated with muscle relaxants anti-inflammatories, ice to the area, supporting chest when she is moving, coughing or bearing down to have bowel movement. She is to follow-up with her PCP in 5-7 days if symptoms are not starting to improve, sooner if her condition worsens in any way. Patient verbalized understanding, she is agreeable to discharge plan of care Differential Diagnosis Differential diagnosis: Likely other ( Fracture, contusion, sprain) Discharge Plan Discharge Clinical Impression: Contusion of rib on right side Qualifiers: Encounter type: initial encounter Qualified Code(s): S29.8XXA - Other specified injuries of thorax, initial encounter Patient Disposition: Home Condition: Stable Instructions: Antibiotic Form, Rib Contusion (ED) Additional Instructions: REST, ICE THE AFFECTED AREA OFF AND ON FOR THE NEXT 1-2 DAYS. YOU MAY TAKE ROBAXIN IN LIEU OF THE FLEXERIL YOU HAVE TAKEN AT HOME FOR BACK PAIN IN THE PAST FOR IMPROVED SYMPTOM RELIEF, AND [id number] IBUPROFEN 600 MG EVERY 6 HOURS, TAKE WITH FOOD TO REDUCE GI SIDE EFFECTS. FOLLOW-UP WITH YOUR PRIMARY DOCTOR IN 5-7 DAYS IF SYMPTOMS ARE NOT IMPROVING, SOONER IF SYMPTOMS WORSEN IN ANY WAY Patient Language: Trinidadian Prescriptions: New methocarbamol 750 mg tablet 750 mg PO QID PRN (Reason: spasms) Qty: 30 0RF No Action cyclobenzaprine 10 mg tablet 10 mg PO HS PRN (Reason: Muscle Pain) pantoprazole 40 mg tablet,delayed release (DR/EC) 40 mg PO BID Follow-up/Referrals: PHYSICIAN NOT ON STAFF,NONSTAFF [Primary Care Provider] - Time of Disposition: 13:51
== END 2024-11-01 13:55 | disposition home or self-care (01) ==
PROVIDERS: Emergency Provider Nurse Practitioner Family
DX: S20.211A Contusion of right front wall of thorax, initial encounter (principal); W18.09XA Striking against other object with subsequent fall, initial encounter; K21.9 Gastro-esophageal reflux disease without esophagitis; Z85.820 Personal history of malignant melanoma of skin
CPT/HCPCS: 71101; 99213; G0463